=== PATIENT | female | born 1990 | race Caucasian/White ===

== ENCOUNTER 2018-02-25 09:22 | Emergency (ER) | payer MEDICARE, MEDICAID ==
[~2018-02-25] VITALS: Ht 167.6 cm; Wt 65.8 kg
[~2018-02-25 09:22] MED LIST: CIPROFLOXACIN500 M3 PO; CYMBALTA60 MG PO; HYDROCODON-ACE1 EAC8 PO; NEURONTIN600 MG
[2018-02-25] MEDS ORDERED: XANAX 0.25 MG0.25 MG PO (09:43)
[2018-02-25] MEDS ORDERED: OXYCODONE HCL10 MG PO (09:43)
[2018-02-25] MEDS ORDERED: FLOVENT HFA 4444 MCG INH (09:44)
[2018-02-25] MEDS ORDERED: VENTOLIN HFA 1818 GM INH (09:44)
[2018-02-25] MEDS ORDERED: MIRENA1 EACH CERVICAL (09:44)
[2018-02-25 09:49] LABS: URINE BILIRUBIN NEGATIVE (Negative); URINE BLOOD 3+ (Negative); URINE CLARITY CLOUDY; URINE COLOR YELLOW; URINE GLUCOSE-RANDOM NEGATIVE (Negative); URINE KETONES TRACE (Negative); URINE PROTEIN 2+ (Negative); URINE SPECIFIC GRAVITY >= 1.030 (1.005-1.030); URINE UROBILINOGEN 0.2 E.U./dl (0.2-1.0)
[2018-02-25 09:50] LABS: URINE LEUKOCYTES-REFLEX 2+ (Negative); URINE NITRITE-REFLEX POSITIVE (Negative)
[2018-02-25 09:59] LABS: CRYSTALS None Seen /LPF (None Seen); SQUAMOUS NONE SEEN /LPF (0-3)
[2018-02-25 10:00] LABS: BACTERIA-REFLEX >30 Many /HPF (None Seen); CASTS None Seen /LPF (None Seen); URINE RBC None Seen /HPF (0-2); URINE WBC-REFLEX >25 Many /HPF (0-5)
[2018-02-25 10:24] LABS: ABSOLUTE BASOPHILS 0.1 thou/uL (0.0-0.2); ABSOLUTE EOSINOPHILS 0.4 thou/uL (0.0-0.7); ABSOLUTE LYMPHOCYTES 1.8 thou/uL (0.8-5.3); ABSOLUTE MONOCYTES 0.7 thou/uL (0.0-1.2); ABSOLUTE NEUTROPHILS 6.9 thou/uL (1.6-8.1); BASOPHILS 0.7 %; EOSINOPHILS 4.2 %; HEMATOCRIT 41.9 % (37.0-47.0); HEMOGLOBIN 14.1 gm/dL (12.0-15.0); LYMPHOCYTES 18.2 %; MCH 30.1 pg (26.0-34.0); MCHC 33.8 g/dL (28.0-37.0); MCV 89.1 fL (80.0-100.0); MPV 9.6 fl. (7.2-11.1); NUCLEATED RBCS 0 /100WBC; PLATELET COUNT* 216 thou/uL (150-400); POLYS 69.9 %; WBC 9.9 thou/uL (4.0-11.0)
[2018-02-25 10:30] LABS: CALCIUM 9.4 mg/dL (8.5-10.1); CREATININE 0.4 mg/dL (0.6-1.3); POTASSIUM 3.5 mmol/L (3.5-5.1)
[2018-02-25 10:35] LABS: ALBUMIN 4.2 g/dL (3.4-5.0); TOTAL BILIRUBIN 0.8 mg/dL (<0.1-1.0); TOTAL PROTEIN 7.7 g/dL (6.4-8.2)
[2018-02-25] MEDS ORDERED: PYRIDIUM200 MG PO (11:00)
[2018-02-25] MEDS ORDERED: KEFLEX500 M1 PO (11:00)
[2018-02-25] MEDS ORDERED: KEFLEX250 MG PO (11:00)
[2018-02-25 11:19] VITALS: BP 113/77
== END 2018-02-25 11:19 | disposition home or self-care (01) ==
LOC: M.ERS 09:22
PROVIDERS: Personal Emergency Response Attendant
DX: N39.0 Urinary tract infection, site not specified (principal); M41.9 Scoliosis, unspecified; J45.909 Unspecified asthma, uncomplicated; F32.9 Major depressive disorder, single episode, unspecified; F41.9 Anxiety disorder, unspecified; Z88.6 Allergy status to analgesic agent; F17.210 Nicotine dependence, cigarettes, uncomplicated

== ENCOUNTER 2018-02-27 13:34 | Emergency (ER) | payer MEDICARE, MEDICAID ==
[~2018-02-27] VITALS: Ht 167.6 cm; Wt 61.2 kg
[~2018-02-27 13:34] MED LIST changes: +FLOVENT HFA 4444 MCG INH; +KEFLEX250 MG PO; +KEFLEX500 M1 PO; +MIRENA1 EACH CERVICAL; +OXYCODONE HCL10 MG PO; +PYRIDIUM200 MG PO; +VENTOLIN HFA 1818 GM INH; +XANAX 0.25 MG0.25 MG PO
[2018-02-27 14:20] LABS: ABSOLUTE BASOPHILS 0.1 thou/uL (0.0-0.2); ABSOLUTE EOSINOPHILS 0.4 thou/uL (0.0-0.7); ABSOLUTE LYMPHOCYTES 2.2 thou/uL (0.8-5.3); ABSOLUTE MONOCYTES 0.5 thou/uL (0.0-1.2); ABSOLUTE NEUTROPHILS 4.7 thou/uL (1.6-8.1); BASOPHILS 1.1 %; EOSINOPHILS 4.5 %; HEMATOCRIT 44.4 % (37.0-47.0); HEMOGLOBIN 14.7 gm/dL (12.0-15.0); LYMPHOCYTES 28.3 %; MCH 29.8 pg (26.0-34.0); MCHC 33.1 g/dL (28.0-37.0); MCV 89.9 fL (80.0-100.0); MONOCYTES 5.9 %; MPV 9.5 fl. (7.2-11.1); NUCLEATED RBCS 0 /100WBC; PLATELET COUNT* 219 thou/uL (150-400); POLYS 60.2 %; RBC 4.94 mil/uL (4.20-5.00); WBC 7.8 thou/uL (4.0-11.0)
[2018-02-27 14:27] LABS: CREATININE 0.4 mg/dL (0.6-1.3); POTASSIUM 3.8 mmol/L (3.5-5.1)
[2018-02-27 14:32] LABS: ALBUMIN 4.5 g/dL (3.4-5.0); TOTAL BILIRUBIN 0.6 mg/dL (<0.1-1.0); TOTAL PROTEIN 8.2 g/dL (6.4-8.2)
[2018-02-27 16:15] LABS: URINE CLARITY SL CLOUDY; URINE COLOR ORANGE; URINE KETONES NEGATIVE (Negative); URINE SPECIFIC GRAVITY >= 1.030 (1.005-1.030)
[2018-02-27 16:18] LABS: ICTOTEST (BILI CONFIRMATORY) Negative (Negative)
[2018-02-27 16:21] LABS: CASTS None Seen /LPF (None Seen); CRYSTALS None Seen /LPF (None Seen); SQUAMOUS 0-3 Few /LPF (0-3); URINE RBC >20 Many /HPF (0-2); URINE WBC-REFLEX >25 Many /HPF (0-5)
[2018-02-27] MEDS ORDERED: NAPROSYN500 MG PO (16:27)
[2018-02-27 17:48] VITALS: BP 137/78
== END 2018-02-27 17:50 | disposition home or self-care (01) ==
LOC: M.ERS 13:34
PROVIDERS: Physician Assistant
DX: N30.90 Cystitis, unspecified without hematuria (principal); F41.9 Anxiety disorder, unspecified; F32.9 Major depressive disorder, single episode, unspecified; J45.909 Unspecified asthma, uncomplicated; M41.9 Scoliosis, unspecified; Z88.6 Allergy status to analgesic agent